=== PATIENT | female | born 1970 | race Caucasian/White ===

== ENCOUNTER 2017-08-18 07:58 | Emergency (ER) | payer BC ==
[~2017-08-18] VITALS: Ht 162.6 cm; Wt 121.6 kg
[~2017-08-18 07:58] MED LIST: FLUO20CA19 PO; HYDR-2601 OR; LEVO50TA53 OR; LIS5T PO; METF-370 PO; TAPE100T11 PO; pantoprazole PO
[2017-08-18 09:17] VITALS: BP 193/126
[2017-08-18] MEDS ORDERED: LIDOCAINE 1% HCL (LOCAL ANESTH.) INJ 20ML MDV IJ ONE (10:00)
== END 2017-08-18 10:26 | disposition home or self-care (01) ==
LOC: ER 07:58
DX: N76.4 Abscess of vulva (principal); K21.9 Gastro-esophageal reflux disease without esophagitis; J45.909 Unspecified asthma, uncomplicated; E11.9 Type 2 diabetes mellitus without complications; I10 Essential (primary) hypertension; E78.5 Hyperlipidemia, unspecified; E07.9 Disorder of thyroid, unspecified; Z88.0 Allergy status to penicillin; Z88.6 Allergy status to analgesic agent
CPT/HCPCS: 56405; 99284; J2001

== ENCOUNTER 2017-08-20 08:29 | Emergency (ER) | payer BC ==
[~2017-08-20] VITALS: Ht 162.6 cm; Wt 121.6 kg
[2017-08-20 09:30] VITALS: BP 165/100
== END 2017-08-20 10:12 | disposition home or self-care (01) ==
LOC: ER 08:29
DX: N76.4 Abscess of vulva (principal); E11.9 Type 2 diabetes mellitus without complications; K21.9 Gastro-esophageal reflux disease without esophagitis; E78.5 Hyperlipidemia, unspecified; I10 Essential (primary) hypertension; E07.9 Disorder of thyroid, unspecified; J45.909 Unspecified asthma, uncomplicated; Z48.01 Encounter for change or removal of surgical wound dressing; Z88.6 Allergy status to analgesic agent; Z88.0 Allergy status to penicillin; Z79.899 Other long term (current) drug therapy; Z90.49 Acquired absence of other specified parts of digestive tract

== ENCOUNTER → 2020-09-03 | Day surgery (SDC) | payer BC ==
[~2020-09-03] VITALS: Ht 160 cm; Wt 120.2 kg
[~2020-09-03] MED LIST changes: +ACCU-CHEK COMFORT CURVE STRIP VI ONE; +AMLO5TAB15 PO; +BUPIVACAINE HCL 50 ML ONE; -FLUO20CA19 PO; +GLIP10TA9 PO; -HYDR-2601 OR; +HYDR12.56 PO; +HYDROmorphone HCL 2 MG/ML VL IV PRN; +INSU0.2I SC; +LEVO200T7 PO; -LEVO50TA53 OR; -LIS5T PO; +MEPERIDINE HCL (25 MG/ML) 1ML VIAL ONE; +MIDAZOLAM HCL 1MG/1ML-2 ML VIAL ONE; +MONT10TA34 PO; +ONDANSETRON HCL 4 MG/2 ML VIAL IV PRN; +ONDANSETRON HCL 4 MG/2 ML VIAL ONE; +PROPOFOL 10 MG/ML 20 ML IV ONE; +ROCURONIUM 10MG/ML 10ML VIAL IV ONE; +SIMV10TA84 PO; +SODIUM CHLORIDE LOCK 20 ML ONE; +SUCCINYLCHOLINE CHLORIDE 20 MG/ML 10ML VIAL IV ONE; -TAPE100T11 PO; +TAPE100T24 PO; +VANCOMYCIN HCL 1000 MG VL ONE; +fentaNYL CITRATE 100 MCG/2 ML VL ONE; +fentaNYL CITRATE 5 ML ONE
[2020-09-03 13:25] VITALS: BP 123/60
== END | disposition home or self-care (01) ==
LOC: SUR 08:13
PROVIDERS: ATTEND Orthopaedic Surgery Sports Medicine
DX: M94.261 Chondromalacia, right knee (principal); E11.9 Type 2 diabetes mellitus without complications; K21.9 Gastro-esophageal reflux disease without esophagitis; E11.22 Type 2 diabetes mellitus with diabetic chronic kidney disease; I12.9 Hypertensive chronic kidney disease with stage 1 through stage 4 chronic kidney disease, or unspecified chronic kidney disease; N18.2 Chronic kidney disease, stage 2 (mild); E66.01 Morbid (severe) obesity due to excess calories; J44.9 Chronic obstructive pulmonary disease, unspecified; G89.29 Other chronic pain; G47.30 Sleep apnea, unspecified; E66.9 Obesity, unspecified; E89.0 Postprocedural hypothyroidism; Z20.828 Contact with and (suspected) exposure to other viral communicable diseases; Z79.899 Other long term (current) drug therapy; Z88.0 Allergy status to penicillin; Z88.5 Allergy status to narcotic agent; Z88.6 Allergy status to analgesic agent; Z88.8 Allergy status to other drugs, medicaments and biological substances; Z90.49 Acquired absence of other specified parts of digestive tract; Z90.710 Acquired absence of both cervix and uterus; Z98.890 Other specified postprocedural states; Z79.84 Long term (current) use of oral hypoglycemic drugs; Z68.42 Body mass index [BMI] 45.0-49.9, adult
CPT/HCPCS: 29879; 82962; J0330; J2175; J2250; J2405; J2704; J3010; J3370; J3490; U0003